=== PATIENT | male | born 1980 | race Caucasian/White ===

== ENCOUNTER 2022-02-09 17:36 | Emergency (ER) | payer OTHER ==
[2022-02-09] MEDS ORDERED: NAPROXEN500 MG PO (18:44)
[2022-02-09] MEDS ORDERED: NORCO 5/3251 EACH PO (18:44)
== END 2022-02-09 19:45 | disposition home or self-care (01) ==
LOC: FER 17:36
DX: S43.014A Anterior dislocation of right humerus, initial encounter (principal); X58.XXXA Exposure to other specified factors, initial encounter; Y92.009 Unspecified place in unspecified non-institutional (private) residence as the place of occurrence of the external cause
CPT/HCPCS: 73020; 73030